=== PATIENT | female | born 2000 | race Caucasian/White ===

== ENCOUNTER 2022-10-30 20:45 | Emergency (ER) | payer OTHER ==
[~2022-10-30] VITALS: Ht 182.9 cm; Wt 100.0 kg
[2022-10-30 20:57] VITALS: TEMP 98.3
[2022-10-30] MEDS ORDERED: LAMICTAL150 MG PO (20:58)
[2022-10-30] MEDS ORDERED: ADDERALL XR25 MG PO (20:59)
[2022-10-30 22:40] VITALS: BP 122/78; PULSE 76
== END 2022-10-30 22:53 | disposition home or self-care (01) ==
LOC: COL.ER 20:45
DX: S01.01XA Laceration without foreign body of scalp, initial encounter (principal); S93.411A Sprain of calcaneofibular ligament of right ankle, initial encounter; W01.198A Fall on same level from slipping, tripping and stumbling with subsequent striking against other object, initial encounter; X50.0XXA Overexertion from strenuous movement or load, initial encounter